=== PATIENT | female | born 1950 | race Caucasian/White ===

== ENCOUNTER 2017-11-28 02:45 | Day surgery (SDC) | payer OTHER ==
[2017-11-26 10:52] LABS: PLATELET COUNT, AUTOMATED 370 K/uL (150-450)
[2017-11-28] VITALS (9 sets, daily range): BP systolic 94–164; BP diastolic 58–76
[~2017-11-28] VITALS: Ht 152.4 cm; Wt 82.6 kg
[~2017-11-28 02:45] MED LIST: AMLO-101 PO; BP Medication PO; GOLYTE PO
[2017-11-28] MEDS ORDERED: LIDOCAINE/SOD BICARB 8.4% SYR ID ONE (13:30)
[2017-11-28] MEDS ORDERED: MIDAZOLAM 2 MG/2 ML VIAL IVP ONE (13:30)
[2017-11-28] MEDS ORDERED: NORMOSOL R SOLN(*) 1000 ML BAG 1,000 ML IV PRN (13:30)
[2017-11-28] MEDS ORDERED: LIDOCAINE MPF 1% 5 ML VIAL ONE (14:10)
[2017-11-28] MEDS ORDERED: PROPOFOL EMUL(*) 10MG/ML 20 ML 60 ML ONE (14:10)
--- NOTE | 2017-11-28 15:46 | Short(Outpt) Discharge Summary ---
Discharge Summary Reason for Hosp/Final Diag: (1) BRBPR (bright red blood per rectum) Status: Chronic Hospital Course & Plan: EGD with biopsies and colonoscopy completed without problems. (2) Right upper quadrant abdominal pain Status: Chronic (3) Family history of polyps in the colon (4) Family history of malignant neoplasm of gastrointestinal tract Departure Discharge to: Home, Self Care Discharge Instructions Home Meds Reported Medications Amlodipine Besylate (NORVASC) 5 Mg Tablet, 1 TAB PO QDAY, TAB 11/22/17 Discontinued Reported Medications [BP Medication] Unknown Strength No Conflict Check, PO QDAY 11/19/17 Discontinued Scripts Peg/Electrolytes (GOLYTELY SOLUTION) 4,000 Ml Soln, 1 GAL PO ONCE, #1 GAL 0 Refills Prov:WARREN AN MD 11/19/17 Follow up Referrals: General Surgery - 12/16/17 @ Surgery, General with Warren An Md You have a follow up appointment scheduled with Dr. An on 12/16/17, at 10:30am. Diet: Regular Activity: As Tolerated Special Instructions: My office nurse, Jen, will call you next week to set up an MRI of your abdomen to evaluate the right kidney lesion and pancreas lesion seen on ultrasound. These are likely benign but the MRI "should" give us more information about these and help me decide if there's anything further that needs to be done about these. Jen will also help you schedule a HIDA scan to see how your gallbladder is functioning as well. I will discuss the results of all of these tests with you when I see you back in my office. WARREN AN MD Nov 28, 2017 15:46
--- NOTE | 2017-11-28 15:58 | Post Operative Progress Note ---
Post Operative Progress Note Date: Nov 28, 2017 Time: 15:46 Surgeon: Maki Dictation number: [id number] on M*Modal Anesthesia: TIVA by Dr. Saenz Pre-Op Diagnosis: RUQ abdominal pain BRBPR FH CRC FH colon polyps Post-Op Diagnosis: MOSES Findings: Normal EGD Normal colonoscopy with excellent prep Procedure(s): 1) EGD with biopsies 2) Colonoscopy Specimen Removed:(May be N/A): 1) Duodenal bx 2) Pyloritek Complications: None Fluids: See anesthesia record Estimated Blood Loss: Minimal Date OP Note Dictated: Nov 28, 2017 Time OP Note Dictated: 15:48 WARREN AN MD Nov 28, 2017 15:58
--- NOTE | 2017-11-30 11:01 | ULLRICH COLONOSCOPY ---
EVENT DATE: November 28, 2017 SURGEON: Win Gambino MD ANESTHESIOLOGIST: Tomi Saenz MD ANESTHESIA: TIVA PREOPERATIVE DIAGNOSIS 1. Right upper quadrant abdominal pain. 2. Bright red blood per rectum. 3. Family history of colon cancer. 4. Family history of colon polyps. POSTOPERATIVE DIAGNOSIS 1. Right upper quadrant abdominal pain. 2. Bright red blood per rectum. 3. Family history of colon cancer. 4. Family history of colon polyps. PROCEDURE PERFORMED 1. Esophagogastroduodenomoscopy with biopsy. 2. Colonoscopy. COMPLICATIONS None. CONDITION Stable. ESTIMATED BLOOD LOSS Minimal. SPECIMENS 1. Duodenum. 2. Pyloritek. FINDINGS This patient's EGD was normal all the way to the third portion of the duodenum. I did not see any tumors, inflammation, ulcers, etc. Her colonoscopy was normal, as well. Withdrawal time was 14 minutes. BOWEL PREP Excellent. INDICATIONS This is 67-year-old female who presented to my office complaining of right upper quadrant abdominal pain that was intermittent and not really associated with eating or other activities. She also mentioned seeing occasional bright red blood per rectum that was on the toilet paper. She also noted that her mom was diagnosed with colon cancer in her 70s but is still alive and is apparently cancer free a couple of decades after the diagnosis. Her father and brother have both had polyps removed. The patient has never had a colonoscopy. She was requesting workup of her symptoms, including EGD and colonoscopy. DESCRIPTION OF PROCEDURE The patient was brought to the endoscopy room and placed in a reclining position on her gurney. A bite block was placed in her mouth. After appropriate anesthesia was obtained, the endoscope was obtained and tested to ensure it was completely functional and lubricated and inserted into her mouth through the bite block. I was easily able to intubate the esophagus and advance the scope all the way to the third portion of the duodenum. I slowly withdrew the scope as I looked at all mucosal surfaces for any abnormalities. I did not see abnormalities in the duodenal bulb or in the portions of the duodenum that I was able to evaluate, nor did I see any abnormalities in the stomach. She did have a small hiatal hernia, but otherwise this was unremarkable. There were no ulcers or inflammation. I took four samples of the duodenum, including two from the duodenal bulb and two from the second portion of the duodenum. I then took three samples of the gastric antrum. The antral samples were sent for Pyloritek to rule out H. pylori infection. I retroflexed the scope to look at the fundus as well as the GE junction from the gastric side and then straightened the scope out and then withdrew the scope in the distal esophagus to look at the GE junction from the esophageal side as well as the Z-line. This looked unremarkable. I advanced the scope back in the stomach and removed as much carbon dioxide from the stomach as I could and then withdrew the scope through the esophagus. I looked at all surfaces of the esophagus, which appeared unremarkable. I then withdrew the scope from the patient's mouth. The bite block was removed. She was placed in the left lateral decubitus position. The colonoscope was set up and tested to ensure it was completely functional. I performed a digital rectal exam, which was unremarkable. I lubricated the colonoscope and inserted into her rectum through her anus. I advanced the scope all the way through to the cecum and then slowly withdrew the scope as I looked at all mucosal surfaces for any abnormalities. With the tip in the rectum, I retroflexed the scope to look at the anal canal and distal rectum. This was unremarkable. I straightened the scope out and removed as much carbon dioxide from the rectum as possible and then withdrew the scope from her body. She was then transported to the recovery area in good condition, having tolerated the procedure without any apparent problems. EMERALD
== END 2017-11-28 16:50 | disposition home or self-care (01) ==
LOC: OR 02:45
PROVIDERS: ATTEND Surgery
DX: R10.11 Right upper quadrant pain (principal); K65.2 Spontaneous bacterial peritonitis; Z80.0 Family history of malignant neoplasm of digestive organs
CPT/HCPCS: 36415; 43239; 45378; 82248; 83516; 85025; 87077; 88305; J2001; J2704; 82040; 82247; 82310; 82374; 82435; 82565; 82947; 84075; 84132; 84155; 84295; 84450; 84460; 84520

== ENCOUNTER → 2017-12-06 | Outpatient (CLI) | payer OTHER ==
[~2017-12-06] MED LIST changes: +GADOBENATE 529MG/1ML 15ML VIAL IVP ONE; +NS 0.9% 50 ML VIAL 50 ML ONE; +SINCALIDE 5 MCG VIAL INJ ONE; +WATER STERILE(*) 10 ML VIAL 10 ML ONE
--- NOTE | 2017-12-06 11:41 | RADIOLOGY IMAGING REPORT ---
FACILITY: [facility] PATIENT NAME: Krystin Golden : 1950 MR: [id number] V: [id number] EXAM DATE: ORDERING PHYSICIAN: WARREN AN TECHNOLOGIST: Location: [facility] [place] Patient: Krystin Golden : 1950 Visit/Account:[id number] Date of Sevice: 12/06/2017 ABDOMEN W W/O CONTRAST HISTORY: Liver lesion, pancreatic lesion ADDITIONAL HISTORY: None. TECHNIQUE: TECHNIQUE: Multiplanar multisequence magnetic resonance imaging of the abdomen without a nd with intravenous contrast. CONTRAST: 15 mL of MultiHance COMPARISON: Gallbladder ultrasound November 26, 2017 FINDINGS: Visualized lung bases: Grossly unremarkable. Liver: There is a 6 mm cyst in the anterior medial segment left lobe of the liver Gallbladder: Negative. Bile ducts: Nondistended and unremarkable. Spleen: Negative. Adrenal glands: Negative. Pancreas: There is no demonstration of a pancreatic mass. Kidneys: There are multiple round lesions in the right kidney all exhibit increased T2 signal intensi ty and no contrast enhancement. On the T1-weighted images there was no demonstration of fat within t he renal masses. Vessels/spaces/nodes: No bulky adenopathy or ascities. Visualized GI: Grossly unremarkable. Bones/soft tissues: Unremarkable. 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 No fat was identified on the renal lesions however if angiomyolipomas r emain of strong clinical concern CT may be helpful Report Dictated By: Hui Lees MD at 12/06/2017 10:42 AM Report E-Signed By: Hui Lees MD at 12/06/2017 11:35 AM WSN:[email or web address]
--- NOTE | 2017-12-06 14:38 | RADIOLOGY IMAGING REPORT ---
FACILITY: [facility] PATIENT NAME: Krystin Golden : 1950 MR: [id number] V: [id number] EXAM DATE: ORDERING PHYSICIAN: WARREN AN TECHNOLOGIST: Location: [facility] Patient: Krystin oGlden : 1950 Visit/Account:[id number] Date of Sevice: 12/06/2017 HIDA W/CCK Right upper quadrant pain TECHNIQUE: 6.8 mCi Tc99M labeled Choletec was injected intravenously. A series of anterior gamma ca nadir images were obtained of the abdomen. 3.4 micrograms of CCK was also administered for this study. COMPARISON STUDIES: Abdominal ultrasound 11/26/2017. No evidence of: Lithiasis at that time. FINDINGS: Liver uptake and excretion: There is prompt uniform hepatic uptake and prompt excretion into the bili loree system. Time to visualization: Bile ducts: 8 minutes. Gallbladder: 10 minutes. Free spill into the duodenum: 23 minutes. Duodenal- gastric reflux / extravasation: None. Calculated gallbladder ejection fraction: 64% IMPRESSION: Normal study. No evidence of obstruction or acalculus cholecystitis. Report Dictated By: Mookie Valdez MD at 12/06/2017 2:20 PM Report E-Signed By: Mookie Valdez MD at 12/06/2017 2:33 PM WSN:[id number]
== END ==
LOC: MRI 00:53
PROVIDERS: ATTEND Surgery
DX: K76.89 Other specified diseases of liver (principal); N28.9 Disorder of kidney and ureter, unspecified
CPT/HCPCS: 74183; 78226; A4216; A9537; A9577; J2805; J7050